=== PATIENT | female | born 1990 | race African-American/Black ===

== ENCOUNTER 2016-12-01 07:49 | Emergency (ER) | payer BC ==
[~2016-12-01] VITALS: Ht 154.9 cm; Wt 131.8 kg
[~2016-12-01 07:49] MED LIST: BACTRIM DS 8001 TAB PO; CEPHALEXIN500 M1 PO; FLAGYL500 MG PO; LORTAB 5/500 501 TAB PO; MOTRIN 600600 MG/TAB PO; NAPROSYN500 MG PO; NO HOME MEDICATIONS; PERCOCET 325 MG1 TA2 PO; PREDNISONE20 MG PO; PRENATAL1 TA1 PO
[2016-12-01 08:18] VITALS: TEMP 98.6
[2016-12-01] MEDS ORDERED: DOXYCYCLINE 10100 MG PO (10:07)
[2016-12-01] MEDS ORDERED: FLAGYL500 MG PO (10:23)
[2016-12-01] MEDS ORDERED: NORCO 325 MG-51 TAB PO (10:23)
[2016-12-01 10:37] VITALS: BP 148/105; PULSE 71
== END 2016-12-01 10:39 | disposition home or self-care (01) ==
LOC: COL.ER 07:49
DX: N61.1 Abscess of the breast and nipple (principal)

== ENCOUNTER → 2017-03-21 | Outpatient (CLI) | payer BC ==
[~2017-03-21] MED LIST changes: +DOXYCYCLINE 10100 MG PO; +NORCO 325 MG-51 TAB PO
== END ==
LOC: ZCOL.LAB 14:23
DX: N61.1 Abscess of the breast and nipple (principal)

== ENCOUNTER 2019-03-01 17:51 | Emergency (ER) | payer BC ==
[~2019-03-01] VITALS: Ht 154.9 cm; Wt 143.2 kg
[2019-03-01 18:04] VITALS: TEMP 98.9
[2019-03-01] MEDS ORDERED: PRENATAL LOW IR1 TA1 PO (19:43)
[2019-03-01] MEDS ORDERED: CEPHALEXIN500 M1 PO (19:58)
[2019-03-01 20:57] VITALS: BP 134/78; PULSE 74
== END 2019-03-01 20:37 | disposition home or self-care (01) ==
LOC: COL.ER 17:51
DX: L02.411 Cutaneous abscess of right axilla (principal)

== ENCOUNTER 2019-03-06 11:00 | Emergency (ER) | payer BC ==
[~2019-03-06] VITALS: Ht 154.9 cm; Wt 143.2 kg
[~2019-03-06 11:00] MED LIST changes: +PRENATAL LOW IR1 TA1 PO
[2019-03-06 11:07] VITALS: BP 122/79; TEMP 98.3
[2019-03-06 13:33] VITALS: PULSE 82
== END 2019-03-06 12:13 | disposition home or self-care (01) ==
LOC: COL.ER 11:00
DX: O26.892 Other specified pregnancy related conditions, second trimester (principal); L02.411 Cutaneous abscess of right axilla; L73.2 Hidradenitis suppurativa; Z3A.18 18 weeks gestation of pregnancy

== ENCOUNTER 2019-06-07 19:28 | Outpatient (CLI) | payer MEDICAID ==
[~2019-06-07] VITALS: Ht 154.9 cm; Wt 142.3 kg
--- NOTE | 2019-06-07 19:30 | NUR ---
ACTIVITY HEARD. PT AWARE OF 2024 HOME WITH PRINTED INSTR. VERBALIZE UNDERSTANDING
--- NOTE | 2019-06-07 19:40 | NUR ---
HERE WITH SPOUSE COMPLAINS OF DECREASED MOVEMENT
[2019-06-07 19:51] VITALS: BP 127/59; TEMP 98.2
[2019-06-07 19:54] VITALS: BP 127/59; PULSE 103; TEMP 98.2
== END 2019-06-07 20:25 | disposition home or self-care (01) ==
LOC: LDRO 19:28 → LDR 19:54 → LDRO 20:25
DX: O36.8130 Decreased fetal movements, third trimester, not applicable or unspecified (principal); Z3A.31 31 weeks gestation of pregnancy
CPT/HCPCS: OP

== ENCOUNTER 2019-07-10 17:31 | Outpatient (CLI) | payer MEDICAID ==
[~2019-07-10] VITALS: Ht 154.9 cm; Wt 146.4 kg
--- NOTE | 2019-07-10 17:30 | NUR ---
Pt here from ER with c/o ?leaking of fluid. 36 weeks gestation, G3L2. Pt to EF, explained. SVE constanza Plascencia RN. closed/thick/high. Assessment complete. Pt with hx of c/section. Pt states baby has been active. VSS. Dr Obrien called at 1750 and notified. Orders received to DC home when reactive NST. FHR reactive. DC instructions given, pt verbalizes understanding. No further questions.
[2019-07-10 17:51] VITALS: BP 133/70; PULSE 100; TEMP 97.8
[2019-07-10 18:00] VITALS: BP 128/68; PULSE 80
== END 2019-07-10 18:10 | disposition home or self-care (01) ==
LOC: LDRO 17:31
DX: O42.913 Preterm premature rupture of membranes, unspecified as to length of time between rupture and onset of labor, third trimester (principal); Z3A.36 36 weeks gestation of pregnancy

== ENCOUNTER 2019-08-03 05:28 | Inpatient (IN) | payer MEDICAID ==
[~2019-08-03] VITALS: Ht 154.9 cm; Wt 151.4 kg
[2019-08-03] VITALS (19 sets, daily range): BP systolic 120–185; BP diastolic 73–94; PULSE 63–94; TEMP 97.7–98.6
--- NOTE | 2019-08-03 05:34 | NUR ---
HERE WITH FOB FOR REPEAT SESCTION DELIVERY. ORIENTED TO ROOM
--- NOTE | 2019-08-03 05:45 | NUR ---
EFM ON. IV START. PERMITS EXPLAINED.
[2019-08-03 06:53] LABS: BASO % 0.2 % (0.0-2.0); EOS # 0.1 (0.0-0.7); EOS % 0.5 % (0-4.0); GRAN % 81.5 % (42.2-75.2); HEMOGLOBIN 11.8 g/dl (12.5-16.0); LYMPH # 1.6 (1.2-3.4); LYMPH % 12.7 % (20.0-51.0); MEAN CELL VOLUME 82 fl (80.0-100.0); MEAN CORPUSCULAR HEMOGLOBIN 28 pg (27.0-31.0); MEAN CORPUSCULAR HGB CONC 34 g/dl (33.0-37.0); MONO # 0.5 (0.1-0.6); MONO % 3.9 % (1.7-9.3); PLATELET COUNT 343 K/mm3 (130-400); RED BLOOD COUNT 4.25 M/mm3 (4.10-5.30); REDCELL DISTRIBUTION WIDTH-CV 14.7 % (11.5-14.5)
[2019-08-03 07:05] LABS: HEMATOCRIT 34.8 % (37.0-47.0)
[2019-08-04] VITALS: BP 124/68; PULSE 67; TEMP 97.8
[2019-08-04 06:45] LABS: HEMOGLOBIN 11.1 g/dl (12.5-16.0)
[2019-08-04 06:55] LABS: HEMATOCRIT 33.3 % (37.0-47.0)
[2019-08-04 07:04] VITALS: BP 134/76; PULSE 76; TEMP 97.4
[2019-08-04] MEDS ORDERED: IBU600 MG PO (08:43)
[2019-08-04] MEDS ORDERED: PERCOCET 325 MG1 TA2 PO (08:44)
--- NOTE | 2019-08-04 11:42 | NUR ---
Initial visit; Craps Dealer left card of congratulations for the of their daughter, Consult in progress.
[2019-08-04 15:45] VITALS: BP 132/78; PULSE 87; TEMP 97.4
[2019-08-04 20:00] VITALS: BP 155/95; PULSE 90; TEMP 97.7
[2019-08-04 22:10] VITALS: BP 132/82; PULSE 86
[2019-08-05 07:25] VITALS: BP 133/79; PULSE 88; TEMP 98.3
--- NOTE | 2019-08-05 10:45 | NUR ---
Discharge instructions given to pt and . No further questions, bands matched and hugs tag removed.
== END 2019-08-05 11:30 | disposition home or self-care (01) | DRG 788 ==
LOC: OB 05:28
PROVIDERS: ADMIT Obstetrics & Gynecology
PROC: 10D00Z1 Extraction of Products of Conception, Low, Open Approach (ICD-10-PCS; principal; 2019-08-03)
DX: O34.211 Maternal care for low transverse scar from previous cesarean delivery (principal); O13.4 Gestational [pregnancy-induced] hypertension without significant proteinuria, complicating childbirth; O99.213 Obesity complicating pregnancy, third trimester; O99.02 Anemia complicating childbirth; D57.3 Sickle-cell trait; O99.72 Diseases of the skin and subcutaneous tissue complicating childbirth; L73.2 Hidradenitis suppurativa; Z3A.39 39 weeks gestation of pregnancy; Z37.0 Single live birth
CPT/HCPCS: J0690; J1885; J2370; J2405; J2590; J3010; J7120

== ENCOUNTER → 2019-08-17 | Outpatient (CLI) | payer MEDICAID ==
[~2019-08-17] MED LIST changes: +IBU600 MG PO
== END ==
LOC: COL.VAS 11:55
DX: M79.89 Other specified soft tissue disorders (principal)

== ENCOUNTER 2020-10-20 05:15 | Inpatient (IN) | payer MEDICAID ==
[~2020-10-20] VITALS: Ht 154.9 cm; Wt 147.7 kg
[2020-10-20] VITALS (20 sets, daily range): BP systolic 126–179; BP diastolic 72–110; PULSE 58–95; TEMP 97.6–98.6
[~2020-10-20 05:15] MED LIST changes: -PROCARDIA XL 3030 MG PO
--- NOTE | 2020-10-20 05:36 | NUR ---
Ambulatory to unit for scheduled C/S, accompanied by significant other. Oriented to room, plan of care, questions invited and answered.
--- NOTE | 2020-10-20 05:40 | NUR ---
bp 185/119 HR 91., BP 180/114 P 101. FHT's difficult to maintain tracing r/t pt's body habitus. Pt to WR for BP. BP 166/102 93. Unable to maintain FHR tracing, monitor tracing Maternal pulse. 0605 IV start to LH. Pt tolerates well.
[2020-10-20 06:23] LABS: BASO % 0.1 % (0.0-2.0); EOS % 0.2 % (0-4.0); GRAN # 13.8 (1.4-6.5); GRAN % 85.7 % (42.2-75.2); HEMOGLOBIN 11.5 g/dl (12.5-16.0); LYMPH # 1.5 (1.2-3.4); LYMPH % 9.2 % (20.0-51.0); MEAN CELL VOLUME 83 fl (80.0-100.0); MEAN CORPUSCULAR HEMOGLOBIN 28 pg (27.0-31.0); MEAN CORPUSCULAR HGB CONC 34 g/dl (33.0-37.0); MEAN PLATELET VOLUME 8.5 fl (7.4-10.4); MONO # 0.7 (0.1-0.6); PLATELET COUNT 390 K/mm3 (130-400); RED BLOOD COUNT 4.09 M/mm3 (4.10-5.30); REDCELL DISTRIBUTION WIDTH-CV 14.8 % (11.5-14.5)
--- NOTE | 2020-10-20 06:30 | NUR ---
Care of pt assumed by this RN from Dae Nicholson RN. Difficulty tracing FHR due to maternal habitus. Pt prepped for C/S. BP reported to Dr. Castanon. Orders for 20mg IV Labetolol given at bedside. FHR noted in the 135s after several attempts. Admission assessment completed. Consents signed. No questions or concerns at this time.
[2020-10-20 06:31] LABS: HEMATOCRIT 34.1 % (37.0-47.0)
[2020-10-20 06:47] LABS: ALBUMIN 3.5 gm/dL (3.5-5.0); BILIRUBIN,TOTAL 0.4 mg/dL (0.0-1.0); CALCIUM 9.2 mg/dL (8.4-10.2); CREATININE, serum 0.45 (0.52-1.25); POTASSIUM 3.3 mmol/L (3.4-5.0); TOTAL PROTEIN 7.5 gm/dL (6.4-8.2)
[2020-10-21 03:45] VITALS: BP 129/71; PULSE 89; TEMP 98.7
[2020-10-21 08:13] LABS: HEMOGLOBIN 10.8 g/dl (12.5-16.0)
[2020-10-21 08:29] VITALS: BP 146/85; PULSE 82; TEMP 98.2
[2020-10-21 08:30] LABS: HEMATOCRIT 31.9 % (37.0-47.0)
[2020-10-21] MEDS ORDERED: PERCOCET 325 MG1 TA2 PO (10:01)
[2020-10-21] MEDS ORDERED: IBU600 MG PO (10:01)
[2020-10-21 11:10] VITALS: BP 150/98; PULSE 87; TEMP 97.8
--- NOTE | 2020-10-21 12:48 | NUR ---
Process Area Supervisor offered congrats to patient.
[2020-10-21 15:44] VITALS: BP 151/96; PULSE 105; TEMP 97.7
[2020-10-21 20:32] VITALS: BP 135/82; PULSE 100; TEMP 98.3
[2020-10-22 08:45] VITALS: BP 127/64; PULSE 98; TEMP 98.4
--- NOTE | 2020-10-22 08:45 | NUR ---
Rests in bed, alert. Assessment done. Denies any needs at this time.
[2020-10-22] MEDS ORDERED: PROCARDIA XL 3030 MG PO (09:16)
--- NOTE | 2020-10-22 10:45 | NUR ---
1050 Sits up in bed, alert. Ibuprofen 600 mg given as ordered.
--- NOTE | 2020-10-22 11:45 | NUR ---
Rests in bed, alert. Denies any needs at this time.
== END 2020-10-22 13:40 | disposition home or self-care (01) | DRG 788 ==
LOC: OB 05:15
PROVIDERS: ADMIT Obstetrics & Gynecology
PROC: 10D00Z1 Extraction of Products of Conception, Low, Open Approach (ICD-10-PCS; principal; 2020-10-20)
DX: O13.4 Gestational [pregnancy-induced] hypertension without significant proteinuria, complicating childbirth (principal); Z37.0 Single live birth; O99.214 Obesity complicating childbirth; E66.9 Obesity, unspecified; O34.211 Maternal care for low transverse scar from previous cesarean delivery; O99.72 Diseases of the skin and subcutaneous tissue complicating childbirth; L73.2 Hidradenitis suppurativa; O99.02 Anemia complicating childbirth; D57.3 Sickle-cell trait; Z3A.39 39 weeks gestation of pregnancy
CPT/HCPCS: J0690; J1885; J2405; J2765; J3010; J7120

== ENCOUNTER → 2020-10-20 | Outpatient (CLI) | payer MEDICAID ==
[~2020-10-20] MED LIST changes: +PROCARDIA XL 3030 MG PO
== END | disposition still patient (30) ==
LOC: ZCOL.LAB 10-17 09:57
DX: Z20.828 Contact with and (suspected) exposure to other viral communicable diseases (principal)

== ENCOUNTER 2021-04-30 10:00 | Emergency (ER) | payer MEDICAID ==
[~2021-04-30] VITALS: Ht 154.9 cm; Wt 139.1 kg
[~2021-04-30 10:00] MED LIST changes: +PROCARDIA XL 3030 MG PO
[2021-04-30 11:11] LABS: BASO % 0.1 % (0.0-2.0); EOS % 0.3 % (0-4.0); GRAN # 5.8 (1.4-6.5); HEMOGLOBIN 12.1 g/dl (12.5-16.0); LYMPH # 0.9 (1.2-3.4); LYMPH % 12.3 % (20.0-51.0); MEAN CELL VOLUME 73 fl (80.0-100.0); MEAN CORPUSCULAR HEMOGLOBIN 24 pg (27.0-31.0); MEAN CORPUSCULAR HGB CONC 33 g/dl (33.0-37.0); MEAN PLATELET VOLUME 8.9 fl (7.4-10.4); MONO # 0.2 (0.1-0.6); MONO % 2.9 % (1.7-9.3); PLATELET COUNT 401 K/mm3 (130-400); RED BLOOD COUNT 4.97 M/mm3 (4.10-5.30)
[2021-04-30 11:12] LABS: HEMATOCRIT 36.5 % (37.0-47.0)
[2021-04-30 13:30] LABS: ALBUMIN 4.1 gm/dL (3.5-5.0); BILIRUBIN,TOTAL 0.4 mg/dL (0.0-1.0); C-REACTIVE PROTEIN 5.8 mg/dL (0.0-0.9); CALCIUM 8.8 mg/dL (8.4-10.2); CREATININE, serum 0.69 (0.52-1.25); POTASSIUM 4.9 mmol/L (3.4-5.0); TOTAL PROTEIN 8.2 gm/dL (6.4-8.2)
[2021-04-30 15:50] VITALS: BP 128/71; PULSE 97; TEMP 100.1
== END 2021-04-30 15:50 | disposition home or self-care (01) ==
LOC: COL.ER 10:00
PROVIDERS: Nurse Practitioner
DX: U07.1 COVID-19 (principal)
CPT/HCPCS: J7030; Q9967

== ENCOUNTER 2021-10-28 00:38 | Emergency (ER) | payer MEDICAID ==
[~2021-10-28] VITALS: Ht 154.9 cm; Wt 152.3 kg
[2021-10-28 00:55] VITALS: TEMP 99.5
[2021-10-28] MEDS ORDERED: DOXYCYCLINE 10100 MG PO (02:12)
[2021-10-28 02:26] VITALS: BP 142/80; PULSE 78
== END 2021-10-28 02:26 | disposition home or self-care (01) ==
LOC: COL.ER 00:38
DX: N61.1 Abscess of the breast and nipple (principal); L73.2 Hidradenitis suppurativa

== ENCOUNTER 2024-08-24 00:43 | Emergency (ER) | payer SELFPAY ==
[~2024-08-24] VITALS: Ht 154.9 cm; Wt 140.0 kg
[2024-08-24 01:09] VITALS: BP 179/91; TEMP 98.7
[2024-08-24] MEDS ORDERED: NAPROSYN500 MG PO (03:19)
[2024-08-24 03:37] VITALS: PULSE 61
== END 2024-08-24 03:37 | disposition home or self-care (01) ==
LOC: COL.ER 00:43
DX: S93.601A Unspecified sprain of right foot, initial encounter (principal); W18.40XA Slipping, tripping and stumbling without falling, unspecified, initial encounter; Y93.E5 Activity, floor mopping and cleaning; Y99.0 Civilian activity done for income or pay